=== PATIENT | male | born 1970 | race Caucasian/White ===

== ENCOUNTER 2017-10-02 16:25 | Emergency (ER) | payer OTHER ==
[~2017-10-02] VITALS: Ht 172.7 cm; Wt 78.2 kg
[2017-10-02 18:21] LABS: BASOPHIL % 0.4 % (0-2); PLATELET COUNT 234 x10^3mcL (130-400); RED CELL DISTRIBUTION WIDTH 12.9 % (11.5-14.5)
[2017-10-02 18:23] LABS: CARBON DIOXIDE 28.4 mmol/L (21-32); CHLORIDE SERUM 106 mmol/L (98-107); CREATININE SERUM 1.1 mg/dL (0.7-1.3); GFR1 > 60 mL/min; GLUCOSE SERUM 96 mg/dL (74-106); MAGNESIUM 2.1 mg/dL (1.8-2.4); POTASSIUM SERUM 4.5 mmol/L (3.5-5.1); SODIUM SERUM 141 mmol/L (136-145)
[2017-10-02 20:24] VITALS: BP 138/76
== END 2017-10-02 20:24 | disposition home or self-care (01) ==
LOC: ED 16:25
PROVIDERS: Emergency Medicine
DX: R07.89 Other chest pain (principal); F41.9 Anxiety disorder, unspecified; R20.2 Paresthesia of skin
CPT/HCPCS: 36415